=== PATIENT | male | born 1955 | race Caucasian/White ===

== ENCOUNTER 2018-02-22 05:24 | Day surgery (SDC) | payer OTHER ==
[~2018-02-22] VITALS: Ht 177.8 cm; Wt 87.5 kg
[~2018-02-22 05:24] MED LIST: CIALIS5 MG PO; CLARITIN,ALAVAR10 MG PO; COZAAR100 MG PO; DEXILANT60 MG PO; MULTI VITAMIN1 EACH PO; NASACORT10.8 ML BOTH NARES; NORVASC10 MG PO
[2018-02-22 06:02] VITALS: BP 133/82
[2018-02-22 08:54] VITALS: BP 151/78
[2018-02-22 09:30] VITALS: BP 134/74
== END 2018-02-22 09:30 | disposition home or self-care (01) ==
LOC: SDC 05:24
DX: H43.11 Vitreous hemorrhage, right eye (principal); H33.311 Horseshoe tear of retina without detachment, right eye; I10 Essential (primary) hypertension; K21.9 Gastro-esophageal reflux disease without esophagitis; Z86.19 Personal history of other infectious and parasitic diseases; Z82.49 Family history of ischemic heart disease and other diseases of the circulatory system; Z83.3 Family history of diabetes mellitus; Z82.0 Family history of epilepsy and other diseases of the nervous system; Z88.1 Allergy status to other antibiotic agents
CPT/HCPCS: J0690